=== PATIENT | female | born 1995 | race Caucasian/White ===

== ENCOUNTER 2017-10-06 21:26 | Emergency (ER) | payer OTHER, MEDICAID ==
[2017-10-06] MEDS ORDERED: Ondansetron 4 MG/2 ML SDV IVPUSH ONE (21:32)
[2017-10-06] MEDS ORDERED: Sodium Chloride 0.9% 1,000 ML IV SCH (21:45)
--- NOTE | 2017-10-06 23:33 | EDM.PDOC ---
ED HPI GENERAL MEDICAL PROBLEM - General Chief Complaint: General Stated Complaint: MEDICAL VIA [facility] Time Seen by Provider: 10/06/17 21:40 Source of Information: Reports: Patient, Family History Limitations: Reports: No Limitations - History of Present Illness INITIAL COMMENTS - FREE TEXT/NARRATIVE: pt arrived with a history of vomiting,She has not had a period for 2 monthes. She was sexually active the end of Sep. She tinks. She was frighted because she left work early and the ambulance was called. Onset: Today Duration: Hour(s): Location: Reports: Other (pt is vomiting. ) Associated Symptoms: Reports: Nausea/Vomiting - Related Data Allergies Allergy/AdvReac Type Severity Reaction Status Date / Time No Known Allergies Allergy Verified 10/06/17 21:49 Home Meds: Home Meds NK [No Known Home Meds] 10/06/17 [History] Past Medical History - Past Health History Medical/Surgical History: Denies Medical/Surgical History Social & Family History - Tobacco Use Smoking Status *Q: Never Smoker ED ROS GENERAL - Review of Systems Review Of Systems: See Below Constitutional: Reports: No Symptoms HEENT: Reports: No Symptoms Respiratory: Reports: No Symptoms Cardiovascular: Reports: No Symptoms Endocrine: Reports: No Symptoms GI/Abdominal: Reports: Nausea, Vomiting, Other (pt stated that she felt lite headed at work today and she left early . She did not go home but she went to hangout with her barrett friend all afternoon. ) Musculoskeletal: Reports: No Symptoms Skin: Reports: No Symptoms ED EXAM, GENERAL - Physical Exam Exam: See Below Free Text/Narrative:: pt arrived with a history of vomiting. She has no sig abdomanal pain. She is concerned that she has not had a period for 2 monthes. Exam Limited By: No Limitations General Appearance: Alert, Anxious, Mild Distress Ears: Normal TMs Nose: Normal Inspection Throat/Mouth: Normal Inspection Head: Atraumatic Neck: Normal Inspection Respiratory/Chest: No Respiratory Distress Cardiovascular: Regular Rate, Rhythm GI/Abdominal: Soft, Non-Tender (Female) Exam: Deferred Rectal (Female) Exam: Deferred Back Exam: Normal Inspection Extremities: Normal Inspection Neurological: Alert, Oriented, Normal Cognition Course - Vital Signs Last Recorded V/S: Last Vital Signs Temp 37.1 C 10/06/17 21:57 Pulse 80 10/06/17 22:11 Resp 16 10/06/17 22:11 BP 127/82 10/06/17 22:11 Pulse Ox 96 10/06/17 22:11 - Orders/Labs/Meds Orders: Active Orders 24 hr Category Date Time Status CULTURE URINE [RM] Stat Lab 10/06/17 23:26 Uncollected Sodium Chloride 0.9% [Normal Saline] 1,000 ml Med 10/06/17 21:45 Active IV ASDIRECTED Medication Orders Sodium Chloride (Normal Saline) 1,000 mls @ 999 mls/hr IV ASDIRECTED EUGENIA Last Admin: 10/06/17 21:48 Dose: 999 mls/hr Labs: Laboratory Tests 10/06/17 10/06/17 10/06/17 Range/Units 21:44 21:44 22:10 WBC 12.9 H (4.5-11.0) K/uL RBC 4.24 (3.30-5.50) M/uL Hgb 13.1 (12.0-15.0) g/dL Hct 38.8 (36.0-48.0) % MCV 92 (80-98) fL MCH 31 (27-31) pg MCHC 34 (32-36) % Plt Count 293 (150-400) K/uL Neut % (Auto) 76 H (36-66) % Lymph % (Auto) 15 L (24-44) % [place] % (Auto) 8 H (2-6) % Eos % (Auto) 1 L (2-4) % Baso % (Auto) 0 (0-1) % Sodium 142 (140-148) mmol/L Potassium 3.5 L (3.6-5.2) mmol/L Chloride 105 (100-108) mmol/L Carbon Dioxide 26 (21-32) mmol/L Anion Gap 14.5 H (5.0-14.0) mmol/L BUN 8 (7-18) mg/dL Creatinine 0.8 (0.6-1.0) mg/dL Est Cr Clr Drug Dosing 83.94 mL/min Estimated GFR (MDRD) > 60 (>60) Glucose 95 (74-106) mg/dL Calcium 9.2 (8.5-10.1) mg/dL Total Bilirubin 0.2 (0.2-1.0) mg/dL AST 16 (15-37) U/L ALT 18 (12-78) U/L Alkaline Phosphatase 60 (46-116) U/L Total Protein 7.7 (6.4-8.2) g/dL Albumin 4.3 (3.4-5.0) g/dL Globulin 3.4 (2.3-3.5) g/dL Albumin/Globulin Ratio 1.3 (1.2-2.2) Amylase (25-115) U/L Lipase (73-393) U/L Urine Color Urine Appearance Urine pH (4.5-8.0) Ur Specific [place] (1.008-1.030) Urine Protein (NEGATIVE) mg/dL Urine Glucose (UA) (NEGATIVE) mg/dL Urine Ketones (NEGATIVE) mg/dL Urine Occult Blood (NEGATIVE) Urine Nitrite (NEGATIVE) Urine Bilirubin (NEGATIVE) Urine Urobilinogen (NORMAL) mg/dL Ur Leukocyte Esterase (NEGATIVE) Urine RBC (0-5) Urine WBC (0-5) Ur Epithelial Cells Amorphous Sediment Urine Bacteria Urine Mucus Urine Other Urine HCG, Qual Negative 10/06/17 10/06/17 Range/Units 22:10 22:36 WBC (4.5-11.0) K/uL RBC (3.30-5.50) M/uL Hgb (12.0-15.0) g/dL Hct (36.0-48.0) % MCV (80-98) fL MCH (27-31) pg MCHC (32-36) % Plt Count (150-400) K/uL Neut % (Auto) (36-66) % Lymph % (Auto) (24-44) % [place] % (Auto) (2-6) % Eos % (Auto) (2-4) % Baso % (Auto) (0-1) % Sodium (140-148) mmol/L Potassium (3.6-5.2) mmol/L Chloride (100-108) mmol/L Carbon Dioxide (21-32) mmol/L Anion Gap (5.0-14.0) mmol/L BUN (7-18) mg/dL Creatinine (0.6-1.0) mg/dL Est Cr Clr Drug Dosing mL/min Estimated GFR (MDRD) (>60) Glucose (74-106) mg/dL Calcium (8.5-10.1) mg/dL Total Bilirubin (0.2-1.0) mg/dL AST (15-37) U/L ALT (12-78) U/L Alkaline Phosphatase (46-116) U/L Total Protein (6.4-8.2) g/dL Albumin (3.4-5.0) g/dL Globulin (2.3-3.5) g/dL Albumin/Globulin Ratio (1.2-2.2) Amylase 52 (25-115) U/L Lipase 96 (73-393) U/L Urine Color Yellow Urine Appearance Clear Urine pH 6.0 (4.5-8.0) Ur Specific [place] 1.015 (1.008-1.030) Urine Protein Negative (NEGATIVE) mg/dL Urine Glucose (UA) Normal (NEGATIVE) mg/dL Urine Ketones Negative (NEGATIVE) mg/dL Urine Occult Blood Large (NEGATIVE) Urine Nitrite Negative (NEGATIVE) Urine Bilirubin Negative (NEGATIVE) Urine Urobilinogen Normal (NORMAL) mg/dL Ur Leukocyte Esterase Negative (NEGATIVE) Urine RBC 5-10 H (0-5) Urine WBC 5-10 H (0-5) Ur Epithelial Cells Few Amorphous Sediment Few Urine Bacteria Few Urine Mucus Few Urine Other See note Urine HCG, Qual Meds: Medications Generic Name Dose Route Start Last Admin Trade Name Freq PRN Reason Stop Dose Admin Sodium Chloride 1,000 mls @ 999 mls/hr 10/06/17 21:45 10/06/17 21:48 Normal Saline IV 999 mls/hr ASDIRECTED EUGENIA Administration Discontinued Medications Generic Name Dose Route Start Last Admin Trade Name Freq PRN Reason Stop Dose Admin Ondansetron HCl 4 mg 10/06/17 21:32 10/06/17 21:48 Zofran IVPUSH 10/06/17 21:33 4 mg ONETIME ONE Administration - Re-Assessments/Exams Free Text/Narrative Re-Assessment/Exam: 10/06/17 23:35 pt was not able to give a good history. She has been vomiting according to her. At the same time she did hang out with her barrett friend all afternoon. Pt was given zoforan and a liter of fluid and she is not vomiting. She is not on control. Departure - Departure Time of Disposition: 23:36 Disposition: Home, Self-Care 01 Condition: Fair Clinical Impression: Dehydration, Menstrual periods irregular - Discharge Information Referrals: Jody Lu PA [Primary Care Provider] - Care Plan Goals: see own provider and recheck to be sure that the pt is not preg. She should consider control, zoforan 4 mg q6h prn for nausea. - My Orders Last 24 Hours: My Active Orders 10/06/17 21:45 Sodium Chloride 0.9% [Normal Saline] 1,000 ml IV ASDIRECTED 10/06/17 23:26 CULTURE URINE [RM] Stat - Assessment/Plan Last 24 Hours: My Active Orders 10/06/17 21:45 Sodium Chloride 0.9% [Normal Saline] 1,000 ml IV ASDIRECTED 10/06/17 23:26 CULTURE URINE [RM] Stat
== END 2017-10-06 23:51 | disposition home or self-care (01) ==
LOC: JP.ED 21:26
DX: E86.0 Dehydration (principal); N92.6 Irregular menstruation, unspecified
CPT/HCPCS: 36415; 80053; 81001; 81025; 82150; 83690; 85025; 96361; 96374; 99284; J2405; J7040

== ENCOUNTER 2021-05-19 13:41 | Emergency (ER) | payer MEDICAID, OTHER ==
[2021-05-19] MEDS ORDERED: Sodium Chloride 0.9% 10 ML Syringe FLUSH PRN (14:29)
--- NOTE | 2021-05-19 14:29 | EDM.PDOC ---
ED HPI GENERAL MEDICAL PROBLEM - General Chief Complaint: Respiratory Problem Stated Complaint: HARD TIME BREATHING , VOMITING Time Seen by Provider: 05/19/21 14:19 Source of Information: Reports: Patient History Limitations: Reports: No Limitations - History of Present Illness INITIAL COMMENTS - FREE TEXT/NARRATIVE: Barbara is a 25 year old female whom presents to ER for evaluation of chest pain, pain with breathing and upper abdominal pain. Barbara reports feeling well last night when she went to bed but got up 2 times overnight due to nausea and vomiting. Barbara did not recall chest pain or abdominal pain overnight but this am when she woke up. 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 Barbara attempted to go to work but increased difficulty breathing noted, prompting her to drive to the ER for evaluation. Barbara recently move in with her parents with her 9 month old baby due to significant other maurice to group home (per nursing staff) report. Barbara has a car which she drove to ER today. Barbara report Nexplanon placed in her upper arm for control in January/April with continued irregular bleeding and taking oral control pill for irregular vaginal bleeding concerns. Barbara reports taking mental health medications which have not changed. Barbara reports continuing vitamins and iron supplement. Barbara report slight cough over the last few weeks but no fever, chills or sweats. - Related Data Allergies Allergy/AdvReac Type Severity Reaction Status Date / Time No Known Allergies Allergy Verified 05/19/21 14:05 Home Meds: Home Meds FLUoxetine HCl [Fluoxetine HCl] 1 tab PO DAILY 05/19/21 [History] Levonorgestrel/Ethin.estradiol [Kurvelo-28 Tablet] 1 tab PO DAILY 05/19/21 [History] traZODone 1 tab PO BEDTIME 05/19/21 [History] Past Medical History - Past Health History Medical/Surgical History: Denies Medical/Surgical History [employer] History: Reports: Other (See Below) (Nexplanon and Oral Control pills per patient) : 1 Para: 1 LMP (Approximate): Unknown Social & Family History - Tobacco Use Tobacco Use Status *Q: Never Tobacco User ED ROS GENERAL - Review of Systems Review Of Systems: Comprehensive ROS is negative, except as noted in HPI. ED EXAM, GENERAL - Physical Exam Exam: See Below Exam Limited By: No Limitations General Appearance: Alert, WD/WN, Anxious Eye Exam: Bilateral Eye: EOMI, Normal Inspection, PERRL Ears: Normal External Exam, Hearing Grossly Normal Nose: Normal Inspection, Normal Mucosa Throat/Mouth: Normal Inspection, Normal Voice, No Airway Compromise Head: Atraumatic Neck: Normal Inspection, Supple Respiratory/Chest: No Respiratory Distress, Lungs Clear, Normal Breath Sounds, Other (Pain to palpation epigastric area and across upper abdomen) Cardiovascular: Normal Peripheral Pulses, Regular Rate, Rhythm GI/Abdominal: Normal Bowel Sounds, Soft, Tender (across upper abdomen ) Back Exam: CVA Tenderness (L), Decreased Range of Motion Extremities: Normal Inspection, Normal Range of Motion Neurological: Alert, Oriented, CN II-XII Intact, Normal Cognition, Normal Gait Psychiatric: Anxious, Flat Affect Skin Exam: Warm, Dry, Intact #1 Interpretation EKG Date: 05/19/21 Time: 15:13 Rhythm: NSR Rate (Beats/Min): 64 [place]: Normal P-Wave: Present QRS: Normal ST-T: Normal QT: Normal (447) Comparison: NA - No Prior EKG EKG Interpretation Comments: Flatten T waves noted involving all leads. Course - Vital Signs Last Recorded V/S: Last Vital Signs Temp 36.6 C 05/19/21 14:16 Pulse 88 05/19/21 14:16 Resp 16 05/19/21 14:16 BP 119/73 05/19/21 14:16 Pulse Ox 98 05/19/21 14:16 - Orders/Labs/Meds Orders: Active Orders 24 hr Category Date Time Status Cardiac Monitoring [RC] .As Directed Care 05/19/21 14:29 Active EKG Documentation Completion [RC] ASDIRECTED Care 05/19/21 14:31 Active Peripheral IV Care [RC] . DIRECTED Care 05/19/21 14:31 Active Chest 2V [CR] Stat Exams 05/19/21 15:45 Taken Alum Hydrox/Mag Hydrox/Simeth [Mag-Al Plus] Med 05/19/21 14:31 Active 30 ml PO Q4H PRN Sodium Chloride 0.9% [Saline Flush] Med 05/19/21 14:29 Active 10 ml FLUSH ASDIRECTED PRN Peripheral IV Insertion Adult [OM.PC] Urgent Oth 05/19/21 14:29 Ordered EKG 12 Lead [EK] Urgent Ther 05/19/21 14:30 Ordered Medication Orders Al Hydroxide/Mg Hydroxide (Aluminum Hydroxide/Magnesium Hydroxide/Simethicone S snf 30 Ml Cup) 30 ml PO Q4H PRN PRN Reason: Abdominal Pain Last Admin: 05/19/21 14:41 Dose: 30 ml Documented by: OMID Sodium Chloride (Sodium Chloride 0.9% 10 Ml Syringe) 10 ml FLUSH ASDIRECTED PRN PRN Reason: Keep Vein Open Labs: Laboratory Tests 05/19/21 05/19/21 05/19/21 Range/Units 14:45 14:45 14:45 WBC 6.2 (4.5-11.0) K/uL RBC 4.24 (3.30-5.50) M/uL Hgb 12.9 (12.0-15.0) g/dL Hct 39.7 (36.0-48.0) % MCV 94 (80-98) fL MCH 30 (27-31) pg MCHC 33 (32-36) % Plt Count 332 (150-400) K/uL Neut % (Auto) 59.3 (36-66) % Lymph % (Auto) 29.6 (24-44) % [place] % (Auto) 9.5 H (2-6) % Eos % (Auto) 1.0 L (2-4) % Baso % (Auto) 0.6 (0-1) % D-Dimer, Quantitative 110.21 (0.0-500.0) ng/mL Sodium (140-148) mmol/L Potassium (3.6-5.2) mmol/L Chloride (100-108) mmol/L Carbon Dioxide (21-32) mmol/L Anion Gap (5.0-14.0) mmol/L BUN (7-18) mg/dL Creatinine (0.6-1.0) mg/dL Est Cr Clr Drug Dosing mL/min Estimated GFR (MDRD) (>60) Glucose (74-106) mg/dL Calcium (8.5-10.1) mg/dL Iron (50-170) ug/dL TIBC (250-450) ug/dl % Saturation (20-55) % Ferritin (8-388) ng/ml Total Bilirubin (0.2-1.0) mg/dL AST (15-37) U/L ALT (12-78) U/L Alkaline Phosphatase (46-116) U/L C-Reactive Protein 0.85 H (0.0-0.3) mg/dL Total Protein (6.4-8.2) g/dL Albumin (3.4-5.0) g/dL Globulin (2.3-3.5) g/dL Albumin/Globulin Ratio (1.2-2.2) Lipase 92 (73-393) U/L HCG, Qual Urine Color (YELLOW) Urine Appearance (CLEAR) Urine pH (5.0-8.0) Ur Specific [place] (1.008-1.030) Urine Protein (NEGATIVE) mg/dL Urine Glucose (UA) (NEGATIVE) mg/dL Urine Ketones (NEGATIVE) mg/dL Urine Occult Blood (NEGATIVE) Urine Nitrite (NEGATIVE) Urine Bilirubin (NEGATIVE) Urine Urobilinogen (0.2-1.0) EU/dL Ur Leukocyte Esterase (NEGATIVE) Urine RBC (0-5) Urine WBC (0-5) Ur Epithelial Cells Amorphous Sediment Urine Bacteria Urine Mucus Urine Other 05/19/21 05/19/21 05/19/21 Range/Units 14:45 15:14 15:14 WBC (4.5-11.0) K/uL RBC (3.30-5.50) M/uL Hgb (12.0-15.0) g/dL Hct (36.0-48.0) % MCV (80-98) fL MCH (27-31) pg MCHC (32-36) % Plt Count (150-400) K/uL Neut % (Auto) (36-66) % Lymph % (Auto) (24-44) % [place] % (Auto) (2-6) % Eos % (Auto) (2-4) % Baso % (Auto) (0-1) % D-Dimer, Quantitative (0.0-500.0) ng/mL Sodium 141 (140-148) mmol/L Potassium 3.6 (3.6-5.2) mmol/L Chloride 104 (100-108) mmol/L Carbon Dioxide 28 (21-32) mmol/L Anion Gap 9.0 (5.0-14.0) mmol/L BUN 13 D (7-18) mg/dL Creatinine 1.0 (0.6-1.0) mg/dL Est Cr Clr Drug Dosing 65.46 mL/min Estimated GFR (MDRD) > 60 (>60) Glucose 123 H (74-106) mg/dL Calcium 8.4 L (8.5-10.1) mg/dL Iron (50-170) ug/dL TIBC (250-450) ug/dl % Saturation (20-55) % Ferritin (8-388) ng/ml Total Bilirubin 0.4 D (0.2-1.0) mg/dL AST 11 L (15-37) U/L ALT 21 (12-78) U/L Alkaline Phosphatase 65 (46-116) U/L C-Reactive Protein (0.0-0.3) mg/dL Total Protein 7.0 (6.4-8.2) g/dL Albumin 3.6 (3.4-5.0) g/dL Globulin 3.4 (2.3-3.5) g/dL Albumin/Globulin Ratio 1.1 L (1.2-2.2) Lipase (73-393) U/L HCG, Qual Negative Urine Color Yellow (YELLOW) Urine Appearance Cloudy A (CLEAR) Urine pH 7.0 (5.0-8.0) Ur Specific [place] 1.025 (1.008-1.030) Urine Protein Negative (NEGATIVE) mg/dL Urine Glucose (UA) Negative (NEGATIVE) mg/dL Urine Ketones Negative (NEGATIVE) mg/dL Urine Occult Blood Small H (NEGATIVE) Urine Nitrite Negative (NEGATIVE) Urine Bilirubin Negative (NEGATIVE) Urine Urobilinogen 0.2 (0.2-1.0) EU/dL Ur Leukocyte Esterase Trace H (NEGATIVE) Urine RBC 0-5 (0-5) Urine WBC 5-10 H (0-5) Ur Epithelial Cells Moderate Amorphous Sediment Not seen Urine Bacteria Many Urine Mucus Not seen Urine Other See note 05/19/21 05/19/21 Range/Units 15:32 15:32 WBC (4.5-11.0) K/uL RBC (3.30-5.50) M/uL Hgb (12.0-15.0) g/dL Hct (36.0-48.0) % MCV (80-98) fL MCH (27-31) pg MCHC (32-36) % Plt Count (150-400) K/uL Neut % (Auto) (36-66) % Lymph % (Auto) (24-44) % [place] % (Auto) (2-6) % Eos % (Auto) (2-4) % Baso % (Auto) (0-1) % D-Dimer, Quantitative (0.0-500.0) ng/mL Sodium (140-148) mmol/L Potassium (3.6-5.2) mmol/L Chloride (100-108) mmol/L Carbon Dioxide (21-32) mmol/L Anion Gap (5.0-14.0) mmol/L BUN (7-18) mg/dL Creatinine (0.6-1.0) mg/dL Est Cr Clr Drug Dosing mL/min Estimated GFR (MDRD) (>60) Glucose (74-106) mg/dL Calcium (8.5-10.1) mg/dL Iron 113 (50-170) ug/dL TIBC 396 (250-450) ug/dl % Saturation 29 (20-55) % Ferritin 16 (8-388) ng/ml Total Bilirubin (0.2-1.0) mg/dL AST (15-37) U/L ALT (12-78) U/L Alkaline Phosphatase (46-116) U/L C-Reactive Protein (0.0-0.3) mg/dL Total Protein (6.4-8.2) g/dL Albumin (3.4-5.0) g/dL Globulin (2.3-3.5) g/dL Albumin/Globulin Ratio (1.2-2.2) Lipase (73-393) U/L HCG, Qual Urine Color (YELLOW) Urine Appearance (CLEAR) Urine pH (5.0-8.0) Ur Specific [place] (1.008-1.030) Urine Protein (NEGATIVE) mg/dL Urine Glucose (UA) (NEGATIVE) mg/dL Urine Ketones (NEGATIVE) mg/dL Urine Occult Blood (NEGATIVE) Urine Nitrite (NEGATIVE) Urine Bilirubin (NEGATIVE) Urine Urobilinogen (0.2-1.0) EU/dL Ur Leukocyte Esterase (NEGATIVE) Urine RBC (0-5) Urine WBC (0-5) Ur Epithelial Cells Amorphous Sediment Urine Bacteria Urine Mucus Urine Other Meds: Medications Generic Name Dose Route Start Last Admin Trade Name Freq PRN Reason Stop Dose Admin Al Hydroxide/Mg Hydroxide 30 ml 05/19/21 14:31 05/19/21 14:41 Aluminum Hydroxide/Magnesium Hydroxide/Simethicone Susp 30 Ml Cup PO 30 ml Q4H PRN Administration Abdominal Pain Sodium Chloride 10 ml 05/19/21 14:29 Sodium Chloride 0.9% 10 Ml Syringe FLUSH ASDIRECTED PRN Keep Vein Open - Re-Assessments/Exams Free Text/Narrative Re-Assessment/Exam: 05/19/21 15:15 laboratory test results reviewed with no acute concerning findings to explain symptoms. Waiting for D dimer due to concerns regarding possible PE to explain symptoms. EKG: No acute concerning findings noted. Diffuse flattened T waves noted in all leads. Patient reported Maalox did not improve but may have worsened symptoms of stomach concerns. 05/19/21 17:08 Reviewed test results and CXR with patient showing low Iron binding saturation and lower ferritin level. Recommend increasing supplemental Iron to 2 tablets daily with known increase side effects of constipation, GI upset and dark stool. Recommended discontinuing oral control but keep Nexplanon in place at this time. Recommended establishing new PCP closer to home (Lori Arias [place]) and discuss using both oral control and nexplanon may increase risk of blood clots. Departure - Departure Time of Disposition: 17:12 Disposition: Home, Self-Care 01 Clinical Impression: Chest pain in adult, Hypoxemia, Abdominal pain - Discharge Information Instructions: Iron-Rich Diet, Ferritin Test, Abdominal Pain, Adult, Nonspecific Chest Pain, Adult Referrals: PCP,None [Primary Care Provider] - 1 Week ([facility] to establish new PCP provider ) Forms: ED Department Discharge Additional Instructions: Increase Iron to 2 tablet daily due to continued low iron binding saturation of (29%) and lower ferritin in 20s. Discontinue oral control with Nexplanon due to increased risk of blood clot and side effects with two forms of hormones. Sepsis Event Note (ED) - Evaluation Sepsis Screening Result: No Definite Risk - Focused Exam Vital Signs: Vital Signs Temp Pulse Resp BP Pulse Ox 05/19/21 14:16 36.6 C 88 16 119/73 98 05/19/21 13:52 36.6 C 88 16 119/73 98 - My Orders Last 24 Hours: My Active Orders 05/19/21 14:29 Cardiac Monitoring [RC] .As Directed Sodium Chloride 0.9% [Saline Flush] 10 ml FLUSH ASDIRECTED PRN Peripheral IV Insertion Adult [OM.PC] Urgent 05/19/21 14:30 EKG 12 Lead [EK] Urgent 05/19/21 14:31 EKG Documentation Completion [RC] ASDIRECTED Peripheral IV Care [RC] . DIRECTED Alum Hydrox/Mag Hydrox/Simeth [Mag-Al Plus] 30 ml PO Q4H PRN 05/19/21 15:45 Chest 2V [CR] Stat - Assessment/Plan Last 24 Hours: My Active Orders 05/19/21 14:29 Cardiac Monitoring [RC] .As Directed Sodium Chloride 0.9% [Saline Flush] 10 ml FLUSH ASDIRECTED PRN Peripheral IV Insertion Adult [OM.PC] Urgent 05/19/21 14:30 EKG 12 Lead [EK] Urgent 05/19/21 14:31 EKG Documentation Completion [RC] ASDIRECTED Peripheral IV Care [RC] . DIRECTED Alum Hydrox/Mag Hydrox/Simeth [Mag-Al Plus] 30 ml PO Q4H PRN 05/19/21 15:45 Chest 2V [CR] Stat
[2021-05-19] MEDS ORDERED: Aluminum Hydroxide/Magnesium Hydroxide/Simethicone Susp 30 ML Cup PO PRN (14:31)
--- NOTE | 2021-05-22 09:17 | CR ---
CHEST: 2 view CLINICAL HISTORY:Chest and upper abdominal pain COMPARISON:None FINDINGS: The heart size, pulmonary vascularity and hilar structures are normal. No infiltrate effusion or pneumothorax is seen. There is a mild pectus deformity IMPRESSION: No acute cardiopulmonary process.
== END 2021-05-19 18:23 | disposition home or self-care (01) ==
LOC: JP.ED 13:41
DX: R07.9 Chest pain, unspecified (principal); R10.9 Unspecified abdominal pain; R09.02 Hypoxemia
CPT/HCPCS: 36415; 71046; 80053; 81001; 82728; 83550; 83690; 84703; 85025; 85379; 86140; 93005; 93010; 99283; 99285; A9270

== ENCOUNTER 2021-06-07 23:02 | Emergency (ER) | payer MEDICAID ==
--- NOTE | 2021-06-08 00:19 | EDM.PDOC ---
ED HPI GENERAL MEDICAL PROBLEM - General Chief Complaint: Abdominal Pain Stated Complaint: DIFFICULTY BREATHING Time Seen by Provider: 06/08/21 00:07 Source of Information: Reports: Patient, Family (Mother) History Limitations: Reports: No Limitations - History of Present Illness INITIAL COMMENTS - FREE TEXT/NARRATIVE: Barbara is a 25-year-old female presenting to the ED for evaluation of generalized abdominal pain, pressure under the diaphragms causing difficulty with breathing, and constipation. This issue has been going on for approximately 3 weeks. The patient has had mild constipation on and off, however, does not recall ever have anything this bad. She was seen in the clinic initially and put on Dulcolax without any significant output. She was seen back in clinic and started on magnesium citrate. She drank this but did not drink any additional water and really had no significant output. She was seen yesterday in the clinic and started on MiraLAX but again feels bloated, crampy, and has had no significant stool output other than a small amount that she had to really strain to move. The patient does not drink an adequate amount of water per day. We did discuss the basic requirements especially in the hot, humid weather with insensible fluid loss. We also discussed how this contributes to slow transit constipation. The patient is fatigued because she is also trying to take care of her 9-month-old child. She feels overwhelmed because of the inability to take deep breaths due to the pressure in the abdomen. 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 (See Below) - Infectious Disease History Infectious Disease History: Reports: Novel Coronavirus Social & Family History - Tobacco Use Tobacco Use Status *Q: Never Tobacco User - Recreational Drug Use Recreational Drug Use: No ED ROS GENERAL - Review of Systems Review Of Systems: See Below Constitutional: Reports: Malaise, Decreased Appetite, Other (Problems sleeping due to increased pressure under the diaphragm) HEENT: Reports: No Symptoms Respiratory: Reports: Shortness of Breath Cardiovascular: Reports: No Symptoms Endocrine: Reports: Fatigue GI/Abdominal: Reports: Abdominal Pain, Constipation, Decreased Appetite, Distension : Reports: No Symptoms Musculoskeletal: Reports: No Symptoms Skin: Reports: No Symptoms Neurological: Reports: No Symptoms Psychiatric: Reports: Anxiety Hematologic/Lymphatic: Reports: No Symptoms Immunologic: Reports: No Symptoms ED EXAM, GI/ABD - Physical Exam Exam: See Below Exam Limited By: No Limitations General Appearance: Alert, Anxious, Mild Distress Eyes: Bilateral: EOMI Throat/Mouth: Normal Inspection, Normal Lips, Normal Oropharynx, Normal Voice, No Airway Compromise Head: Atraumatic, Normocephalic Neck: Normal Inspection, Supple Respiratory/Chest: No Respiratory Distress, Lungs Clear, Normal Breath Sounds Cardiovascular: Normal Peripheral Pulses, Regular Rate, Rhythm, No Murmur GI/Abdominal Exam: Soft, Tender (Tympany to percussion throughout the upper abdomen also mild tenderness throughout the entire abdomen), Abnormal Bowel Sounds (Diminished bowel sounds), Other (Dullness to percussion throughout the lower abdomen). No: Guarding, Rigid, Rebound Extremities: Normal Inspection, Normal Range of Motion Neurological: Alert, Oriented, Normal Cognition, No Motor/Sensory Deficits Psychiatric: Normal Affect, Normal Mood Skin Exam: Warm, Dry Lymphatic: No Adenopathy Course - Vital Signs Last Recorded V/S: Last Vital Signs Temp 36.5 C 06/07/21 23:47 Pulse 79 06/07/21 23:47 Resp 16 06/07/21 23:47 BP 126/83 06/07/21 23:47 Pulse Ox 97 06/07/21 23:47 - Orders/Labs/Meds Orders: Active Orders 24 hr Category Date Time Status Enema [RC] ASDIRECTED Care 06/08/21 00:50 Active Abdomen 1V Flat [CR] Stat Exams 06/08/21 00:14 Taken COMPREHENSIVE METABOLIC PN,CMP [CHEM] Stat Lab 06/08/21 00:23 Received Labs: Laboratory Tests 06/08/21 Range/Units 00:23 WBC 9.9 (4.5-11.0) K/uL RBC 4.14 (3.30-5.50) M/uL Hgb 12.8 (12.0-15.0) g/dL Hct 38.0 (36.0-48.0) % MCV 92 (80-98) fL MCH 31 (27-31) pg MCHC 34 (32-36) % Plt Count 309 (150-400) K/uL Neut % (Auto) 61.4 (36-66) % Lymph % (Auto) 29.1 (24-44) % Zapata % (Auto) 8.5 H (2-6) % Eos % (Auto) 0.7 L (2-4) % Baso % (Auto) 0.3 (0-1) % Meds: Medications Discontinued Medications Generic Name Dose Route Start Last Admin Trade Name Freq PRN Reason Stop Dose Admin Ondansetron HCl 4 mg 06/08/21 01:18 06/08/21 01:25 Ondansetron 4 Mg Tab.Dis PO 06/08/21 01:19 4 mg ONETIME ONE Administration - Radiology Interpretation Free Text/Narrative:: I reviewed the KUB showing a large amount of stool in the rectum with a distended, air-filled colon without obstruction. - Re-Assessments/Exams Free Text/Narrative Re-Assessment/Exam: 06/08/21 01:39 the patient has constipation with copious flatus throughout the colon. She was given a tap water enema which had good results. She has had relief of her symptoms. Her labs are unremarkable. At this time she is suitable for discharge home in satisfactory condition. She may continue the MiraLAX until she is more regular. Departure - Departure Time of Disposition: 01:39 Disposition: Home, Self-Care 01 Clinical Impression: Slow transit constipation - Discharge Information Instructions: Constipation, Adult Referrals: Deisy Montalvo CNM [Primary Care Provider] - Forms: ED Department Discharge Care Plan Goals: Make sure to drink plenty of fluids throughout the day. In the hot weather your body requires between 100 - 120 ounces of water per day. Dehydration is the leading cause for constipation. You may take Maalox to help break up the gas should it recur. Sepsis Event Note (ED) - Evaluation Sepsis Screening Result: No Definite Risk - Focused Exam Vital Signs: Vital Signs Temp Pulse Resp BP Pulse Ox 06/07/21 23:47 36.5 C 79 16 126/83 97 06/07/21 23:26 36.5 C 79 16 126/83 97 - Problem List & Annotations (1) Slow transit constipation SNOMED Code(s): 20411207 Code(s): K59.01 - SLOW TRANSIT CONSTIPATION Status: Acute Priority: Medium Current Visit: Yes - Problem List Review Problem List Initiated/Reviewed/Updated: Yes - My Orders Last 24 Hours: My Active Orders 06/08/21 00:14 Abdomen 1V Flat [CR] Stat 06/08/21 00:23 COMPREHENSIVE METABOLIC PN,CMP [CHEM] Stat 06/08/21 00:50 Enema [RC] ASDIRECTED - Assessment/Plan Last 24 Hours: My Active Orders 06/08/21 00:14 Abdomen 1V Flat [CR] Stat 06/08/21 00:23 COMPREHENSIVE METABOLIC PN,CMP [CHEM] Stat 06/08/21 00:50 Enema [RC] ASDIRECTED
[2021-06-08] MEDS ORDERED: Ondansetron 4 MG Tab.DIS PO ONE (01:18)
--- NOTE | 2021-06-08 09:27 | CR ---
Abdomen 1V Flat CLINICAL HISTORY: Constipation FINDINGS: There are scattered air-filled loops of small bowel in a nonspecific pattern. There is gas and feces in the colon. IMPRESSION: Nonspecific intestinal gas pattern
== END 2021-06-08 01:47 | disposition home or self-care (01) ==
LOC: JP.ED 23:02
DX: K59.01 Slow transit constipation (principal); Z86.16 Personal history of COVID-19
CPT/HCPCS: 36415; 74018; 80053; 85025; 99283; A9270

== ENCOUNTER 2021-12-19 13:41 | Emergency (ER) | payer MEDICAID, OTHER ==
[2021-12-19] MEDS ORDERED: Ibuprofen 400 MG Tab PO ONE (14:08)
== END 2021-12-19 14:25 | disposition home or self-care (01) ==
LOC: JP.ED 13:41
DX: S50.12XA Contusion of left forearm, initial encounter (principal); Z86.16 Personal history of COVID-19
CPT/HCPCS: 99283; A9270

== ENCOUNTER 2022-08-29 09:27 | Emergency (ER) | payer MEDICAID ==
[2022-08-29] MEDS: cefTRIAXone 1 GM in Sodium Chloride 0.9% 50 ML IV ONE (10:36)
[2022-08-29] MEDS: Sodium Chloride 0.9% 10 ML Syringe FLUSH PRN (10:37)
[2022-08-29] MEDS: Ketorolac 30 MG/ML SDV IVPUSH ONE (11:04)
== END 2022-08-29 11:10 | disposition home or self-care (01) ==
LOC: JP.ED 09:27
DX: K04.7 Periapical abscess without sinus (principal); S02.5XXS Fracture of tooth (traumatic), sequela; Z79.899 Other long term (current) drug therapy; Z86.16 Personal history of COVID-19
CPT/HCPCS: 96365; 96375; 99282; J0696; J1885; J3490

== ENCOUNTER 2022-11-26 11:58 | Emergency (ER) | payer MEDICAID ==
[2022-11-26] MEDS ORDERED: Sodium Chloride 0.9% 10 ML Syringe FLUSH PRN (14:14)
[2022-11-26] MEDS ORDERED: Lactated Ringers 1,000 ML IV ONE (14:14)
[2022-11-26] MEDS ORDERED: Tranexamic Acid 1,000 MG in Sodium Chloride 0.9% 500 ML IV ONE (15:14)
[2022-11-26] MEDS ORDERED: Tranexamic Acid 1,000 MG in Sodium Chloride 0.9% 50 ML IV ONE (16:00)
== END 2022-11-26 17:08 | disposition home or self-care (01) ==
LOC: JP.ED 11:58
DX: N92.1 Excessive and frequent menstruation with irregular cycle (principal); D68.00 Von Willebrand disease, unspecified; Z86.16 Personal history of COVID-19
CPT/HCPCS: 36415; 80048; 83605; 85025; 96361; 96365; 99284; J3490; J7120

== ENCOUNTER 2023-05-19 16:52 | Emergency (ER) | payer MEDICAID | END 2023-05-19 18:13 | disposition home or self-care (01) | LOC: JP.ED 16:52 | DX: T81.49XA Infection following a procedure, other surgical site, initial encounter (principal); T81.31XA Disruption of external operation (surgical) wound, not elsewhere classified, initial encounter; D68.00 Von Willebrand disease, unspecified; Z86.16 Personal history of COVID-19; Z98.890 Other specified postprocedural states | CPT/HCPCS: 99282 ==

== ENCOUNTER 2023-08-20 12:15 | Emergency (ER) | payer MEDICAID | END 2023-08-20 13:56 | disposition home or self-care (01) | LOC: JP.ED 12:15 | DX: G89.18 Other acute postprocedural pain (principal); L30.9 Dermatitis, unspecified; Z86.16 Personal history of COVID-19; Z79.899 Other long term (current) drug therapy | CPT/HCPCS: 99283 ==

== ENCOUNTER 2023-09-02 13:04 | Emergency (ER) | payer MEDICAID ==
[2023-09-02 13:45] LABS: APPEARANCE,URINE CLEAR (CLEAR); BILIRUBIN,URINE NEGATIVE (NEGATIVE); COLOR,URINE YELLOW (YELLOW); GLUCOSE,URINE NEGATIVE (NEGATIVE); KETONES,URINE NEGATIVE (NEGATIVE); LEUKOCYTE ESTERASE,URINE NEGATIVE (NEGATIVE); NITRITE,URINE NEGATIVE (NEGATIVE); OCCULT BLOOD,URINE TRACE-INTACT (NEGATIVE); PH,URINE 6.5 (5.0-8.0); PROTEIN,URINE NEGATIVE (NEGATIVE); UROBILINOGEN,URINE 0.2 EU/dL (0.2-1.0)
[2023-09-02 13:50] LABS: BASOPHILS ABSOLUTE AUTO 0.05 K/uL (0.00-0.10); BASOPHILS PERCENT AUTO 0.5 % (0.1-1.3); EOSINOPHILS ABSOLUTE AUTO 0.23 K/uL (0.00-0.40); EOSINOPHILS PERCENT AUTO 2.4 % (0.0-5.4); HEMATOCRIT 39.2 % (34.3-46.0); HEMOGLOBIN 13.5 g/dL (11.2-15.5); IMMATURE GRAN ABSOLUTE AUTO 0.05 K/uL (0.00-0.23); IMMATURE GRAN PERCENT AUTO 0.5 % (0.0-0.7); LYMPHOCYTES ABSOLUTE AUTO 2.84 K/uL (0.8-3.3); LYMPHOCYTES PERCENT AUTO 29.1 % (11.4-47.7); MEAN CORPUSCULAR HEMOGLOBIN 31.5 pg (31.6-35.5); MEAN CORPUSCULAR HGB CONC 34.4 g/dL (31.6-35.5); MEAN CORPUSCULAR VOLUME 91.6 fL (81.4-99.0); MONOCYTES ABSOLUTE AUTO 0.71 K/uL (0.20-0.90); MONOCYTES PERCENT AUTO 7.3 % (3.3-12.6); NEUTROPHILS ABSOLUTE AUTO 5.89 K/uL (1.0-7.6); NEUTROPHILS PERCENT AUTO 60.2 % (40.0-78.1); PLATELET COUNT,PLT 318 K/uL (130-375); RED BLOOD CELL COUNT 4.28 M/uL (3.77-5.24); WHITE BLOOD CELL COUNT,WBC 9.8 K/uL (3.2-11.0)
[2023-09-02 13:58] LABS: AMORPHOUS SEDIMENT,URINE NOT SEEN; BACTERIA,URINE FEW; EPITHELIAL CELLS,URINE MODERATE; MUCUS,URINE NOT SEEN; RBC,URINE 0-5 (0-5); WBC,URINE NOT SEEN (0-5)
[2023-09-02 14:11] LABS: A/G RATIO 1.1 (1.2-2.2); ALANINE AMINOTRANSFERASE,ALT 28 U/L (12-78); ALBUMIN 3.9 g/dL (3.4-5.0); ALKALINE PHOSPHATASE 76 U/L (46-116); ASPARTATE AMNIOTRANSFERASE,AST 19 U/L (15-37); BILIRUBIN TOTAL 0.3 mg/dL (0.2-1.0); BLOOD UREA NITROGEN,BUN 12 mg/dL (7-18); CALCIUM 8.7 mg/dL (8.5-10.1); CARBON DIOXIDE,CO2 29 mmol/L (21-32); CHLORIDE,CL 99 mmol/L (100-108); CREATININE 0.8 mg/dL (0.6-1.0); EST CRCL DRUG DOSING (CG) 76.54 mL/min; ESTIMATED GFR 104 mL/min (>60); GLUCOSE RANDOM 136 mg/dL (74-106); POTASSIUM,K 3.1 mmol/L (3.6-5.2); PROTEIN TOTAL,TP 7.3 g/dL (6.4-8.2); SODIUM,NA 138 mmol/L (140-148)
[2023-09-02 14:18] LABS: ANION GAP 13.1 mmol/L (5.0-14.0)
[2023-09-02] MEDS ORDERED: Ketorolac 30 MG/ML SDV IVPUSH ONE (14:31)
[2023-09-02] MEDS: Sodium Chloride 0.9% 10 ML Syringe FLUSH PRN ×2 (14:46→15:06)
[2023-09-02] MEDS ORDERED: Sodium Chloride 0.9% 10 ML SDV FLUSH ONE (14:47)
[2023-09-02] MEDS ORDERED: Sodium Chloride 0.9% 50 ML IV SCH (15:00)
[2023-09-02] MEDS ORDERED: Iopamidol 612 MG/ML 100 ML Bottle IV SCH (15:00)
[2023-09-02] MEDS ORDERED: Magnesium Citrate Solution 296 ML Bottle PO ONE (17:39)
== END 2023-09-02 18:35 | disposition home or self-care (01) ==
LOC: JP.ED 13:04
DX: K59.00 Constipation, unspecified (principal); Z79.899 Other long term (current) drug therapy; Z86.16 Personal history of COVID-19
CPT/HCPCS: 36415; 74019; 74177; 76856; 80053; 81001; 85025; 86140; 96374; 99284; A9270; J1885; J3490; Q9967; 99283

== ENCOUNTER 2024-08-18 12:06 | Emergency (ER) | payer MEDICAID ==
[2024-08-18 14:18] LABS: BASOPHILS ABSOLUTE AUTO 0.03 K/uL (0.00-0.10); BASOPHILS PERCENT AUTO 0.2 % (0.1-1.3); EOSINOPHILS ABSOLUTE AUTO 0.14 K/uL (0.00-0.40); EOSINOPHILS PERCENT AUTO 1.1 % (0.0-5.4); HEMATOCRIT 39.7 % (34.3-46.0); HEMOGLOBIN 14.1 g/dL (11.2-15.5); IMMATURE GRAN ABSOLUTE AUTO 0.05 K/uL (0.00-0.23); IMMATURE GRAN PERCENT AUTO 0.4 % (0.0-0.7); LYMPHOCYTES ABSOLUTE AUTO 2.57 K/uL (0.8-3.3); LYMPHOCYTES PERCENT AUTO 21.1 % (11.4-47.7); MEAN CORPUSCULAR HEMOGLOBIN 32.3 pg (31.6-35.5); MEAN CORPUSCULAR HGB CONC 35.5 g/dL (31.6-35.5); MEAN CORPUSCULAR VOLUME 90.8 fL (81.4-99.0); MONOCYTES ABSOLUTE AUTO 0.69 K/uL (0.20-0.90); MONOCYTES PERCENT AUTO 5.7 % (3.3-12.6); NEUTROPHILS ABSOLUTE AUTO 8.72 K/uL (1.0-7.6); NEUTROPHILS PERCENT AUTO 71.5 % (40.0-78.1); PLATELET COUNT,PLT 349 K/uL (130-375); RED BLOOD CELL COUNT 4.37 M/uL (3.77-5.24); WHITE BLOOD CELL COUNT,WBC 12.2 K/uL (3.2-11.0)
[2024-08-18] MEDS: Tranexamic Acid 1,000 MG/10 ML Vial TOP ONE (14:35)
== END 2024-08-18 14:54 | disposition home or self-care (01) ==
LOC: JP.ED 12:06
DX: D68.00 Von Willebrand disease, unspecified (principal); N64.52 Nipple discharge; K21.9 Gastro-esophageal reflux disease without esophagitis; Z86.16 Personal history of COVID-19; Z90.710 Acquired absence of both cervix and uterus; Z79.899 Other long term (current) drug therapy
CPT/HCPCS: 36415; 85025; 99283

== ENCOUNTER 2025-07-14 07:46 | Day surgery (SDC) | payer MEDICAID ==
[2025-07-14] MEDS: Lactated Ringers 1,000 ML IV SCH (08:39)
[2025-07-14] MEDS ORDERED: Propofol 200 MG/20 ML SDV ONE ×3 (08:56→10:18)
[2025-07-14] MEDS ORDERED: fentaNYL 100 MCG/2 ML SDV ONE (08:56)
[2025-07-14] MEDS ORDERED: Midazolam 1 MG/ML 2 ML SDV ONE (08:56)
[2025-07-14] MEDS: metroNIDAZOLE/Normal Saline 500 MG in Premix Bag 1 BAG IV ONE (09:24)
[2025-07-14] MEDS: Lidocaine 1% with EPINEPHrine 1:100,000 50 ML MDV ONE (10:10)
[2025-07-14] MEDS ORDERED: Hydrocortisone Sodium Succinate 100 MG/2 ML SDV ONE (10:15)
[2025-07-14] MEDS ORDERED: Ketorolac 30 MG/ML SDV ONE (10:15)
[2025-07-14] MEDS: Acetaminophen/HYDROcodone 325-5 MG Tab PO PRN (13:20)
== END 2025-07-14 16:51 | disposition home or self-care (01) ==
LOC: JP.SDS 07:46
PROVIDERS: ATTEND Surgery
DX: L98.491 Non-pressure chronic ulcer of skin of other sites limited to breakdown of skin (principal); F41.8 Other specified anxiety disorders; Z79.899 Other long term (current) drug therapy
CPT/HCPCS: 11400; 88304; A9270; J0169; J0665; J0690; J1100; J1836; J1885; J2250; J2704; J2795; J3010; J7120; J1720